=== PATIENT | female | born 1970 | race Caucasian/White ===

== ENCOUNTER 2017-03-24 12:38 | Emergency (ER) | payer OTHER ==
[2017-03-24 12:46] VITALS: BMI 24.7
[2017-03-24 12:47] VITALS: BP 135/84; PULSE 85; RESP 16; TEMP 98.2; O2SAT 100
--- NOTE | 2017-03-24 16:12 | C.PDOC ---
History Of Present Illness 46 yr old female presents to the ER with complaints of posterior right shoulder and upper back pain for the past 1 month. Patient states she was seen by her PMD last week, had XRays done which were negative for any fractures. Patient reports she takes ibuprofen intermittently for the pain. Denies any recent trauma or injury, no fever, chest pain, SOB, abdominal pain, weakness or numbness. Time Seen by Provider: 03/24/17 13:10 Chief Complaint (Nursing): Back Pain History Per: Patient History/Exam Limitations: no limitations Onset/Duration Of Symptoms: Persistent (1 month) Past Medical History Reviewed: Historical Data, Nursing Documentation, Vital Signs Vital Signs: Last Vital Signs Temp 98.2 F 03/24/17 12:47 Pulse 85 03/24/17 12:47 Resp 16 03/24/17 12:47 BP 135/84 03/24/17 12:47 Pulse Ox 100 03/24/17 16:14 Family History: States: No Known Family Hx - Social History Hx Alcohol Use: No Hx Substance Use: No - Immunization History Hx Tetanus Toxoid Vaccination: No Hx Influenza Vaccination: No Hx Pneumococcal Vaccination: No Review Of Systems Except As Marked, All Systems Reviewed And Found Negative. Constitutional: Negative for: Fever Cardiovascular: Negative for: Chest Pain Respiratory: Negative for: Shortness of Breath Gastrointestinal: Negative for: Abdominal Pain Musculoskeletal: Positive for: Shoulder Pain (Posterior right shoulder pain ), Back Pain (Upper back pain ) Neurological: Negative for: Weakness, Numbness Physical Exam - Physical Exam Appears: Well, Non-toxic, No Acute Distress Skin: Warm, Dry, No Rash Head: Atraumatic, Normacephalic Chest: Symmetrical, No Tenderness Cardiovascular: Rhythm Regular, No Murmur Respiratory: Normal Breath Sounds, No Rales, No Rhonchi, No Stridor, No Wheezing Gastrointestinal/Abdominal: Normal Exam, Soft, No Tenderness, No Guarding, No Rebound Back: Normal Inspection, No CVA Tenderness Extremity: Normal ROM, No Tenderness, No Swelling Neurological/Psych: Oriented x3, Normal Speech, Normal Motor, Normal Sensation, Normal Reflexes ED Course And Treatment O2 Sat by Pulse Oximetry: 100 Medical Decision Making Medical Decision Making: PLAN: * Flexeril PO Disposition - Disposition Referrals: Chance Taylor, [Non-Staff] - Disposition: HOME/ ROUTINE Disposition Time: 13:45 Condition: GOOD Additional Instructions: Thank you for letting us take care of you today. Your provider was Dr. Carrero. You were treated for shoulder pain. The emergency medical care you received today was directed at your acute symptoms. If you were prescribed any medication, please fill it and take as directed. It may take several days for your symptoms to resolve. Return to the Emergency Department if your symptoms worsen, do not improve, or if you have any other problems. Please contact your doctor or call one of the physicians/clinics you have been referred to that are listed on the Patient Visit Information form that is included in your discharge packet. Bring any paperwork you were given at discharge with you along with any medications you are taking to your follow up visit. Our treatment cannot replace ongoing medical care by a primary care provider (PCP) outside of the emergency department. Thank you for allowing the [facility] team to be part of your care today. Follow up with your doctor in 3-4 days for re-evaluation. Prescriptions: Cyclobenzaprine [Cyclobenzaprine HCl] 10 mg PO Q8 PRN #20 tab PRN Reason: Muscle Spasm Instructions: Shoulder Pain (ED) - Clinical Impression Clinical Impression: Thoracic back pain - Scribe Statement The provider has reviewed the documentation as recorded by the Esmeibe Susy Naqvi Provider Attestation: All medical record entries made by the Esmeibjusto were at my direction and personally dictated by me. I have reviewed the chart and agree that the record accurately reflects my personal performance of the history, physical exam, medical decision making, and the department course for this patient. I have also personally directed, reviewed, and agree with the discharge instructions and disposition.
== END 2017-03-24 13:26 | disposition home or self-care (01) ==
LOC: C.ER 12:38
DX: M54.6 Pain in thoracic spine (principal)